=== PATIENT | male | born 1965 | race Caucasian/White ===

== ENCOUNTER 2021-11-08 01:10 | Emergency (ER) | payer BC ==
[2021-11-08 01:20] VITALS: TEMP 98.3
[2021-11-08] MEDS ORDERED: SODIUM CHLORIDE 0.9% 1,000 ML IV STA (01:28)
[2021-11-08] MEDS ORDERED: ONDANSETRON 4 MG/2 ML VIAL IVP STA (01:28)
[2021-11-08] MEDS ORDERED: HYDROmorphone 1 MG/ML 1 ML SYRINGE IVP STA (01:28)
[2021-11-08] MEDS ORDERED: LORazepam 2 MG/ML INJ IV STA (01:33)
--- NOTE | 2021-11-08 01:38 | ED ---
Abdominal Pain HPI - General Chief Complaint: Abdominal Pain Stated Complaint: Abdominal Pain Time Seen by Provider: 11/08/21 01:23 Source: patient, RN notes reviewed Mode of arrival: ambulatory Limitations: no limitations - History of Present Illness Initial Comments: This is a 56-year-old male who comes ER complaining of sharp right upper quadrant abdominal pains which come almost on a daily basis. Patient states his been going on for about 1 month. Patient states that the pain seems to come and go. He does not draw any relation to eating. Patient has had some nausea. He also has had some loose stools. Patient had an ultrasound done as an outpatient which showed fatty liver. There was no gallbladder pathology. Patient states that the pain is in the right upper quadrant and radiates into the right chest and right mid back at times. No difficulty with urination. No skin rashes or lesions. No shortness of breath. No cough. Patient denies any previous surgeries. Denies any significant health problems. Note that the patient rec eived a [employer] COVID-19 vaccine last year but did not receive a booster. - Related Data Previous Rx's Medication Instructions Recorded Metoclopramide [Reglan] 10 mg PO Q6HR PRN #20 tab 11/08/21 Allergies Allergy/AdvReac Type Severity Reaction Status Date / Time No Known Allergies Allergy Verified 11/08/21 01:20 Review of Systems ROS Statement: Those systems with pertinent positive or pertinent negative responses have been documented in the HPI. ROS Other: All systems not noted in ROS Statement are negative. Past Medical History Past Medical History: No Reported History History of Any Multi-Drug Resistant Organisms: None Reported Past Surgical History: Hernia Repair, Orthopedic Surgery Additional Past Surgical History / Comment(s): maricruz shoulder,rt hand, vasectomy Past Psychological History: No Psychological Hx Reported Smoking Status: Current some day smoker Past Alcohol Use History: Daily Past Drug Use History: None Reported General Exam Limitations: no limitations General appearance: alert, in no apparent distress Head exam: Present: atraumatic, normocephalic, normal inspection Eye exam: Present: normal appearance, PERRL, EOMI. Absent: scleral icterus, conjunctival injection, periorbital swelling ENT exam: Present: normal exam, normal oropharynx, mucous membranes dry, mucous membranes moist, TM's normal bilaterally Neck exam: Present: normal inspection. Absent: tenderness, meningismus, lymphadenopathy Respiratory exam: Present: normal lung sounds bilaterally. Absent: respiratory distress, wheezes, rales, rhonchi, stridor Cardiovascular Exam: Present: regular rate, normal rhythm, normal heart sounds. Absent: systolic murmur, diastolic murmur, rubs, gallop, clicks GI/Abdominal exam: Present: soft, distended, tenderness, guarding, normal bowel sounds, other (Right upper quadrant tenderness, palpable liver edge). Absent: rebound, rigid Extremities exam: Present: normal inspection, full ROM, normal capillary refill. Absent: tenderness, pedal edema, joint swelling, calf tenderness Back exam: Present: normal inspection Neurological exam: Present: alert, oriented X3, CN II-XII intact Psychiatric exam: Present: normal affect, normal mood Skin exam: Present: warm, dry, intact, normal color. Absent: rash Course Vital Signs 11/08/21 11/08/21 01:16 02:40 Temperature 98.3 F Pulse Rate 86 78 Respiratory 20 18 Rate Blood Pressure 185/106 137/85 O2 Sat by Pulse 99 95 Oximetry Medical Decision Making - Medical Decision Making This patient presented with abdominal pain which is been essentially daily for about 1 month. Patient seen his primary care physician and outpatient ultrasound which showed fatty liver disease. Patient's workup here tonight shows some small bowel thickening consistent with mild ileus. No other acute findings were noted. I discussed the findings with the patient. Patient states she is feeling well enough to go home. Patient does admit to having some c onstipation. Patient is taking no medications which would cause slow transit. We'll try the patient on Reglan. Advised milk of magnesia. Patient was given follow-up information for gastroenterology, general surgery, as well as his primary care physician. Discussed hydration strategies. Patient was told to return to the ER for any signs or symptoms worsen. Told to return immediately if any other problems arise. All questions answered. Treatment plan discussed. Patient in agreement. The case was discussed in detail with ED attending physician. Presentation, findings, treatment plan discussed in detail. Supervising physicians Dr. Lamb - Lab Data Result diagrams: 11/08/21 01:46 11/08/21 01:46 Lab Results 11/08/21 11/08/21 11/08/21 Range/Units 01:46 01:46 01:46 WBC 11.0 H (3.8-10.6) k/uL RBC 5.02 (4.30-5.90) m/uL Hgb 16.3 (13.0-17.5) gm/dL Hct 48.4 (39.0-53.0) % MCV 96.4 (80.0-100.0) fL MCH 32.6 (25.0-35.0) pg MCHC 33.8 (31.0-37.0) g/dL RDW 12.4 (11.5-15.5) % Plt Count 239 (150-450) k/uL MPV 7.4 Neutrophils % 57 % Lymphocytes % 32 % Monocytes % 5 % Eosinophils % 4 % Basophils % 1 % Neutrophils # 6.3 (1.3-7.7) k/uL Lymphocytes # 3.5 (1.0-4.8) k/uL Monocytes # 0.6 (0-1.0) k/uL Eosinophils # 0.4 (0-0.7) k/uL Basophils # 0.1 (0-0.2) k/uL APTT 24.4 (22.0-30.0) sec Sodium 139 (137-145) mmol/L Potassium 4.1 (3.5-5.1) mmol/L Chloride 105 (98-107) mmol/L Carbon Dioxide 27 (22-30) mmol/L Anion Gap 7 mmol/L BUN 19 (9-20) mg/dL Creatinine 1.01 (0.66-1.25) mg/dL Est GFR (CKD-EPI)AfAm >90 (>60 ml/min/1.73 sqM) Est GFR (CKD-EPI)NonAf 84 (>60 ml/min/1.73 sqM) Glucose 106 H (74-99) mg/dL Plasma Lactic Acid Neto (0.7-2.0) mmol/L Calcium 10.2 (8.4-10.2) mg/dL Total Bilirubin 0.9 (0.2-1.3) mg/dL AST 27 (17-59) U/L ALT 17 (4-49) U/L Alkaline Phosphatase 69 (38-126) U/L Troponin I (0.000-0.034) ng/mL Total Protein 7.5 (6.3-8.2) g/dL Albumin 4.4 (3.5-5.0) g/dL Amylase 72 (30-110) U/L Lipase 105 (23-300) U/L 11/08/21 11/08/21 Range/Units 01:46 01:46 WBC (3.8-10.6) k/uL RBC (4.30-5.90) m/uL Hgb (13.0-17.5) gm/dL Hct (39.0-53.0) % MCV (80.0-100.0) fL MCH (25.0-35.0) pg MCHC (31.0-37.0) g/dL RDW (11.5-15.5) % Plt Count (150-450) k/uL MPV Neutrophils % % Lymphocytes % % Monocytes % % Eosinophils % % Basophils % % Neutrophils # (1.3-7.7) k/uL Lymphocytes # (1.0-4.8) k/uL Monocytes # (0-1.0) k/uL Eosinophils # (0-0.7) k/uL Basophils # (0-0.2) k/uL APTT (22.0-30.0) sec Sodium (137-145) mmol/L Potassium (3.5-5.1) mmol/L Chloride (98-107) mmol/L Carbon Dioxide (22-30) mmol/L Anion Gap mmol/L BUN (9-20) mg/dL Creatinine (0.66-1.25) mg/dL Est GFR (CKD-EPI)AfAm (>60 ml/min/1.73 sqM) Est GFR (CKD-EPI)NonAf (>60 ml/min/1.73 sqM) Glucose (74-99) mg/dL Plasma Lactic Acid Neto 0.9 (0.7-2.0) mmol/L Calcium (8.4-10.2) mg/dL Total Bilirubin (0.2-1.3) mg/dL AST (17-59) U/L ALT (4-49) U/L Alkaline Phosphatase (38-126) U/L Troponin I <0.012 (0.000-0.034) ng/mL Total Protein (6.3-8.2) g/dL Albumin (3.5-5.0) g/dL Amylase (30-110) U/L Lipase (23-300) U/L 11/08/21 03:27 EKG done at 2:48 AM and reviewed by the ED attending physician reveals normal sinus rhythm with sinus arrhythmia, rate is 67, normal intervals, no acute ST or T wave changes, normal axis. - Radiology Data Radiology results: report reviewed, image reviewed Disposition Clinical Impression: RUQ abdominal pain, Constipation by delayed colonic transit Disposition: HOME SELF-CARE Condition: Stable Instructions (If sedation given, give patient instructions): Constipation (DC), High Fiber Diet (ED), Abdominal Pain (ED) Prescriptions: Metoclopramide [Reglan] 10 mg PO Q6HR PRN #20 tab PRN Reason: Nausea Is patient prescribed a controlled substance at d/c from ED?: No Referrals: Kimmy Fried MD [STAFF PHYSICIAN] - 11/10/21 Roberta Cruz MD [STAFF PHYSICIAN] - 11/10/21 Johnny Chen DO [Primary Care Provider] - 11/10/21 Time of Disposition: 03:23
[2021-11-08 02:06] LABS: Basophils # (A) 0.1 k/uL (0-0.2); Basophils % (A) 1 %; Eosinophils # (A) 0.4 k/uL (0-0.7); Eosinophils % (A) 4 %; HCT 48.4 % (39.0-53.0); HGB 16.3 gm/dL (13.0-17.5); Lymphocytes # (A) 3.5 k/uL (1.0-4.8); Lymphocytes % (A) 32 %; MCH 32.6 pg (25.0-35.0); MCHC 33.8 g/dL (31.0-37.0); MCV 96.4 fL (80.0-100.0); Mean Platelet Volume 7.4; Monocytes # (A) 0.6 k/uL (0-1.0); Monocytes % (A) 5 %; Neutrophils # (A) 6.3 k/uL (1.3-7.7); Neutrophils % (A) 57 %; Platelet Count 239 k/uL (150-450); RBC 5.02 m/uL (4.30-5.90); RDW 12.4 % (11.5-15.5)
[2021-11-08 02:28] LABS: ALT 17 U/L (4-49); AST 27 U/L (17-59); African American GFR (CKD) >90 (>60 ml/min/1.73 sqM); Albumin 4.4 g/dL (3.5-5.0); Alkaline Phosphatase 69 U/L (38-126); Amylase 72 U/L (30-110); Anion Gap 7 mmol/L; Blood Urea Nitrogen 19 mg/dL (9-20); Calcium 10.2 mg/dL (8.4-10.2); Carbon Dioxide 27 mmol/L (22-30); Chloride 105 mmol/L (98-107); Glucose 106 mg/dL (74-99); Lipase 105 U/L (23-300); Non-African American GFR(CKD) 84 (>60 ml/min/1.73 sqM); Potassium 4.1 mmol/L (3.5-5.1); Sodium 139 mmol/L (137-145); Total Bilirubin 0.9 mg/dL (0.2-1.3); Total Protein 7.5 g/dL (6.3-8.2)
--- NOTE | 2021-11-08 02:35 | XR ---
EXAMINATION TYPE: XR chest 1V portable DATE OF EXAM: 11/08/2021 COMPARISON: NONE HISTORY: Abdominal pain TECHNIQUE: Single view FINDINGS: Heart and mediastinum are normal. Lungs are clear. Images normal. Bony thorax appears normal. IMPRESSION: Normal chest.
[2021-11-08 02:41] VITALS: BP 137/85; PULSE 78; RESP 18
--- NOTE | 2021-11-08 02:44 | CT ---
EXAMINATION TYPE: CT abdomen pelvis w con DATE OF EXAM: 11/08/2021 COMPARISON: None HISTORY: abdominal pain-right upper quadrant and right flank pain CT DLP: 847.7 mGycm Automated exposure control for dose reduction was used. CONTRAST: Performed with IV Contrast, patient injected with 100 mL of Isovue 300. Images obtained from the diaphragm to the floor the pelvis with IV contrast. The lung bases are clear. There is no pleural effusion. Heart size is normal. There is no pericardial effusion. Liver spleen and stomach pancreas appear intact. The bile ducts are not dilated. There is 1 cm cyst in the left lobe and right lobe of the liver. Gallbladder is intact. There is no adrenal mass. Kidneys show satisfactory contrast opacification. There is no hydronephrosi s. Ureters are not dilated. Delayed images show normal renal excretion. Bladder distends smoothly. Th ere is no inguinal hernia. There is no free fluid in the pelvis. There is no evidence of a pelvic mass. There is no mesenteric e enedelia. There is no ascites or free air. Appendix is posterior and appears normal. There is borderline enlargement of proximal jejunum loop that measures 3 cm. This could be some mild localized ileus. The lumbar vertebrae have normal alignment. There is no compression fracture. Posterior elements are intact. Bony pelvis is intact. The hip joints are intact. IMPRESSION: Single distended small bowel loops suggestive of mild ileus. Normal appendix.
[2021-11-08 03:33] LABS: Appearance,Urine Clear (Clear); Bilirubin,Urine Negative (Negative); Blood,Urine Negative (Negative); Color,Urine Yellow; Glucose,Urine (UA) Negative (Negative); Ketones,Urine Negative (Negative); Leukocyte Esterase,Urine Negative (Negative); Nitrite,Urine Negative (Negative); Protein,Urine Negative (Negative); Specific Gravity,Urine 1.021 (1.001-1.035)
== END 2021-11-08 03:36 | disposition home or self-care (01) ==
LOC: EC 01:10
DX: K59.00 Constipation, unspecified (principal); R10.11 Right upper quadrant pain; F17.200 Nicotine dependence, unspecified, uncomplicated
CPT/HCPCS: 36415; 93005; 80053; 82150; 83605; 83690; 84484; 85025; 85730; 81003; 87635; 71045; 74177; 99284; 96374; 96375 ×2; 96361; J2060; J2405; J1170; Q9967

== ENCOUNTER → 2021-11-28 | Outpatient (CLI) | payer BC ==
--- NOTE | 2021-11-28 14:58 | NM ---
EXAMINATION TYPE: NM hepatobiliary w EF DATE OF EXAM: 11/28/2021 COMPARISON: NONE HISTORY: pain TECHNIQUE: After the intravenous administration of 3.9 mCi Tc 99m Mebrofenin hepatobiliary scintigrap hy is performed. Immediate images post injection. FINDINGS: There is satisfactory initial accumulation of tracer by the liver. The gallbladder is visualized wit hin 26 minutes. The small bowel activity is noted within 10 minutes. At one hour 8 ounces of oral e nsure plus is given to mimic CCK and gallbladder ejection fraction is calculated at 82 %, in the norm al range. Therefore there is no scintigraphic evidence of cystic or common bile duct obstruction to suggest acute cholecystitis or gallbladder dyskinesia. IMPRESSION: Exam is within normal limits.
== END | disposition home or self-care (01) ==
LOC: RADNMMAIN 12:44
PROVIDERS: ATTEND Surgery
DX: R10.811 Right upper quadrant abdominal tenderness (principal)
CPT/HCPCS: 78226; A9537

== ENCOUNTER 2024-07-24 07:40 | Day surgery (SDC) | payer BC ==
[~2024-07-24 07:40] MED LIST: LIDOCAINE 1% (10MG/ML) FOR IV START INTRADERMA PRN
[2024-07-24 08:03] VITALS: TEMP 97.4
[2024-07-24] MEDS: LACTATED RINGERS 1,000 ML IV SCH (08:09)
[2024-07-24] MEDS: IV FLUID CONTINUATION 1,000 ML IV ONE (08:10)
[2024-07-24] MEDS ORDERED: PROPOFOL 10 MG/ML 20 ML VIAL IV ONE (08:24)
--- NOTE | 2024-07-24 08:55 | P.PCN ---
Date of Procedure: 07/24/24 Preoperative Diagnosis: Screening History of polyps Postoperative Diagnosis: Rectal polyps Procedure(s) Performed: Colonoscopy with polypectomy Anesthesia: MAC Surgeon: Armani Walters Pathology: other (Rectal polyps) Condition: stable Disposition: same day Indications for Procedure: 59-year-old male presents today for screening colonoscopy. He does have a history of colon polyps. Denies any blood in his stool. Plan for colonoscopy for screening and surveillance. Operative Findings: Rectal polyps Description of Procedure: The patient was brought to the endoscopy suite and placed in left lateral decubitus position and adequate sedation was achieved using conscious sedation. A digital rectal exam was performed and mild internal hemorrhoids were palpated. An endoscope was then placed in the rectum and advanced to the cecum as identified by landmarks including the appendiceal orifice and the ileocecal valve. The prep was good. The colonoscope was then slowly withdrawn, examining for any mucosal abnormalities. The cecum, ascending, transverse, descending and sigmoid colon were visualized adequately. No obvious inflammatory lesions were found. Mild to moderate diverticulosis noted in the sigmoid colon. Few rectal polyps were noted that appeared likely hyperplastic. These were removed with forcep polypectomy. Hemostasis maintained. Retroflexion was performed the rectum and mild internal hemorrhoids were visible. Excess air was removed. The colonoscope withdrawn and procedure terminated. The patient was then transferred to recovery unit in stable condition. Repeat colonoscopy should be performed in 5 years.
[2024-07-24 09:08] VITALS: BP 130/87; PULSE 62; RESP 18
== END 2024-07-24 09:27 | disposition home or self-care (01) ==
LOC: ORWHC2ENDO 07:40
PROVIDERS: ATTEND Surgery
CPT/HCPCS: 45380; 88305